=== PATIENT | female | born 1995 | race Caucasian/White ===

== ENCOUNTER 2016-07-09 17:55 | Emergency (ER) | payer BC ==
--- NOTE | 2016-07-09 18:04 | ER Document Report ---
ED Medical Screen (RME) - General Stated Complaint: ABDOMINAL PAIN Notes: light headed with dizzyness, chills b/l groin and testicle pain with hematuria for one day. no discharge h/o kidney stones I have greeted and performed a rapid initial assessment of this patient. A comprehensive ED assessment and evaluation of the patient, analysis of test results and completion of the medical decision making process will be conducted by additional ED providers.
[2016-07-09 18:45] LABS: ABSOLUTE LYMPHOCYTES (AUTO) 1.3 10^3/uL (0.5-4.7); ABSOLUTE MONOCYTES (AUTO) 0.4 10^3/uL (0.1-1.4); ABSOLUTE NEUT (AUTO) 4.8 10^3/uL (1.7-8.2); BASOPHILS % (AUTO) 0.5 % (0-2); EOSINOPHILS % (AUTO) 0.7 % (0-6); HEMATOCRIT 40.9 % (36.0-47.0); HGB HCT DIFFERENCE 1.1; LYMPHOCYTES % (AUTO) 19.3 % (13-45); MEAN CORPUSCULAR HEMOGLOBIN 29.4 pg (27.0-33.4); MEAN CORPUSCULAR HGB CONC 34.4 g/dL (32.0-36.0); MEAN CORPUSCULAR VOLUME 86 fl (80-97); MONOCYTES % (AUTO) 5.5 % (3-13); RED BLOOD COUNT 4.78 10^6/uL (3.72-5.28); WHITE BLOOD COUNT 6.5 10^3/uL (4.0-10.5)
[2016-07-09 18:46] LABS: APPEARANCE,URINE CLEAR; BILIRUBIN,URINE NEGATIVE (NEGATIVE); GLUCOSE, URINE NEGATIVE (NEGATIVE); KETONES,URINE NEGATIVE (NEGATIVE); LEUKOCYTE ESTERASE,URINE NEGATIVE (NEGATIVE); NITRITE,URINE NEGATIVE (NEGATIVE); PROTEIN,URINE NEGATIVE (NEGATIVE); URINE SPECIFIC GRAVITY 1.011; UROBILINOGEN,URINE NEGATIVE mg/dL (<2.0)
[2016-07-09 19:10] LABS: ALANINE AMINOTRANSFERASE 22 U/L (9-52); ALBUMIN 4.5 g/dL (3.5-5.0); ALKALINE PHOSPHATASE 49 U/L (38-126); ANION GAP 11 (5-19); ASPARTATE AMINO TRANSFERASE 17 U/L (14-36); BILIRUBIN,TOTAL 0.4 mg/dL (0.2-1.3); BLOOD UREA NITROGEN 5 mg/dL (7-20); CALCIUM 9.4 mg/dL (8.4-10.2); CARBON DIOXIDE 26 mmol/L (22-30); CHLORIDE 101 mmol/L (98-107); CREATININE RESULT 0.57 mg/dL (0.52-1.25); GLUCOSE 75 mg/dL (75-110); LIPASE 63.3 U/L (23-300); SODIUM 137.8 mmol/L (137-145); TOTAL PROTEIN 7.2 g/dL (6.3-8.2)
--- NOTE | 2016-07-09 22:53 | ER Document Report ---
ED General - General Chief Complaint: Abdominal Pain Stated Complaint: ABDOMINAL PAIN Notes: Patient is 20-year-old female who is 14 weeks . She presents because of some lower abdominal pain. No abnormal vaginal discharge or bleeding. No fevers. No vomiting. No recent infections. She had a ultrasound at 9 weeks which was normal. This is her first . She does not smoke drink or do drugs. She is taking vitamins. TRAVEL OUTSIDE OF THE [place] IN LAST 30 DAYS: No - Related Data Allergies/Adverse Reactions: No Known Allergies Allergy (Verified 07/09/16 18:07) Past Medical History - Social History Smoking Status: Unknown if Ever Smoked Chew tobacco use (# tins/day): No Frequency of alcohol use: None Drug Abuse: None Family History: Reviewed & Not Pertinent Patient has suicidal ideation: No Patient has homicidal ideation: No Renal/ Medical History: Denies: Hx Peritoneal Dialysis Review of Systems - Review of Systems Notes: My Normal Review Basic REVIEW OF SYSTEMS: CONSTITUTIONAL : Denies fever, chills, or sweats. Denies recent illness. EENT: Denies eye, ear, throat, or mouth pain or symptoms. Denies nasal or sinus congestion. RESPIRATORY: Denies cough, cold, or chest congestion. Denies shortness of breath, difficulty breathing, or wheezing. GASTROINTESTINAL: Left lower abdominal pain. Denies nausea, vomiting, or diarrhea. Denies constipation. Last BM: GENITOURINARY: Denies difficulty urinating, painful urination, burning, frequency, or blood in urine. FEMALE GENITOURINARY: Denies vaginal bleeding, abnormal or irregular periods. LMP: Currently MUSCULOSKELETAL: Denies neck or back pain or joint pain or swelling. SKIN: Denies rash or skin lesions. ALL OTHER SYSTEMS REVIEWED AND NEGATIVE. Physical Exam - Vital signs Vitals: Temp Pulse Resp BP Pulse Ox 98.3 F 60 18 137/76 H 99 07/09/16 18:06 07/09/16 18:06 07/09/16 18:06 07/09/16 18:06 07/09/16 18:06 - Notes Notes: General Appearance: Well nourished, alert, cooperative, no acute distress, no obvious discomfort. Well-appearing. Vitals: reviewed, See vital signs table. Eyes: PERRL, EOMI, Conjuctiva clear Mouth: No decreasd moisture Lungs: No wheezing, No rales, No rhonci, No accessory muscle use, good air exchange bilaterally. Heart: Normal rate, Regular rythm, No murmur, no rub Abdomen: Normal BS, soft, No rigidity, mild left lower quadrant abdominal tenderness to palpation, No guarding, no rebound, no abdominal masses, no organomegaly Pelvic: Normal external genitalia. Some white discharge in vaginal vault. No blood. Extremities: strength 5/5 in all extremities, good pulses in all extremities, no swelling or tenderness in the extremities, no edema. Skin: warm, dry, appropriate color, no rash Neuro: speech clear, oriented x 3, normal affect, responds appropriately to questions. Course - Vital Signs Vital signs: Temp Pulse Resp BP Pulse Ox 98.5 F 58 L 14 122/72 99 07/10/16 00:44 07/10/16 00:44 07/10/16 00:44 07/10/16 00:44 07/10/16 00:44 - Laboratory Result Diagrams: 07/09/16 18:30 07/09/16 18:30 Laboratory results interpreted by me: 07/09/16 07/09/16 18:30 18:30 BUN 5 L Beta HCG, Quant 43777.00 H - Transfer of Care Notes: 07/10/16 06:03 All shows obtained patient is does have some abdominal pain. Ultrasound was negative for any complications with . Wet prep did show bacterial vaginosis. I will place her on Flagyl. Patient will be discharged home this encourage follow closely with her valve maker. She's encouraged return to ER if she has any vaginal bleeding, fevers, or feels unwell. Dictation of this chart was performed using voice recognition software; therefore, there may be some unintended grammatical errors. Discharge - Discharge Clinical Impression: Bacterial vaginosis Qualifiers: Weeks of gestation: 14 weeks Qualified Code(s): Z3A.14 - 14 weeks gestation of Abdominal pain Qualifiers: Abdominal location: left lower quadrant Qualified Code(s): R10.32 - Left lower quadrant pain Condition: Good Disposition: HOME, SELF-CARE Additional Instructions: Please follow up closely with your OB physician. Please return to ER immediately if you have worsening pain, fevers, or any vaginal bleeding. Prescriptions: Metronidazole [Flagyl 500 mg Tablet] 500 mg PO BID #14 tablet
[2016-07-10] MEDS ORDERED: METRONIDAZOLE 500 MG TABLET PO ONE (00:03)
[2016-07-10 00:27] LABS: CHLAM PCR NOT DETECTED (NOT DETECT)
[2016-07-10 00:47] VITALS: BP 122/72
== END 2016-07-10 00:47 | disposition home or self-care (01) ==
LOC: ER 17:55
DX: O23.592 Infection of other part of genital tract in pregnancy, second trimester (principal); N76.0 Acute vaginitis; B96.89 Other specified bacterial agents as the cause of diseases classified elsewhere; O26.891 Other specified pregnancy related conditions, first trimester; R10.32 Left lower quadrant pain; Z3A.14 14 weeks gestation of pregnancy
CPT/HCPCS: 36415; 76801; 80053; 81001; 83690; 84702; 85025; 87086; 87210; 87491; 87591; 99284

== ENCOUNTER 2016-10-20 15:47 | Outpatient (CLI) | payer BC | END 2016-10-20 17:30 | disposition home or self-care (01) | LOC: LC 15:47 | PROVIDERS: ATTEND Specialist | PROC: 4A1HXCZ Monitoring of Products of Conception, Cardiac Rate, External Approach (ICD-10-PCS; principal; 2016-10-20) | DX: Z34.93 Encounter for supervision of normal pregnancy, unspecified, third trimester (principal); Z36 Encounter for antenatal screening of mother; Z3A.28 28 weeks gestation of pregnancy ==

== ENCOUNTER 2016-12-16 15:15 | Inpatient (IN) | payer BC, OTHER ==
[2016-12-16] MEDS ORDERED: PENICILLIN G POTASSIUM 5,000,000 UNIT in DEXTROSE 5%-WATER 100 ML IV ONE (15:50)
[2016-12-16] MEDS ORDERED: RINGERS SOLUTION,LACTATED 1,000 ML IV PRN (15:50)
[2016-12-16 15:58] LABS: APPEARANCE,URINE CLEAR; BILIRUBIN,URINE NEGATIVE (NEGATIVE); GLUCOSE, URINE NEGATIVE (NEGATIVE); KETONES,URINE NEGATIVE (NEGATIVE); LEUKOCYTE ESTERASE,URINE MODERATE (NEGATIVE); NITRITE,URINE NEGATIVE (NEGATIVE); PROTEIN,URINE NEGATIVE (NEGATIVE); URINE SPECIFIC GRAVITY 1.005; UROBILINOGEN,URINE NEGATIVE mg/dL (<2.0)
[2016-12-16] MEDS ORDERED: PENICILLIN G-K 5 MILLION UNIT VIAL ONE ×2 (15:58→19:36)
[2016-12-16] MEDS ORDERED: OXYTOCIN/NORMAL SALINE 0 UNIT/0 ML RTUINJ ONE (16:08)
[2016-12-16] MEDS ORDERED: MISOPROSTOL 0.2 MG TABLET ONE ×2 (16:08→16:19)
[2016-12-16] MEDS ORDERED: LIDOCAINE 1% INJ-PF (10 MG/ML) 30 ML SDV ONE ×3 (16:08→20:22)
[2016-12-16 16:12] LABS: URINE BARBITURATES SCREEN NEGATIVE; URINE METHADONE SCREEN NEGATIVE; URINE OPIATES LOW NEGATIVE; URINE PHENCYCLIDINE SCREEN NEGATIVE
[2016-12-16 16:17] LABS: ABSOLUTE LYMPHOCYTES (AUTO) 1.1 10^3/uL (0.5-4.7); ABSOLUTE MONOCYTES (AUTO) 0.8 10^3/uL (0.1-1.4); ABSOLUTE NEUT (AUTO) 8.5 10^3/uL (1.7-8.2); BASOPHILS % (AUTO) 0.2 % (0-2); EOSINOPHILS % (AUTO) 0.1 % (0-6); HEMATOCRIT 31.9 % (36.0-47.0); HEMOGLOBIN 10.7 g/dL (12.0-15.5); HGB HCT DIFFERENCE 0.2; LYMPHOCYTES % (AUTO) 10.2 % (13-45); MEAN CORPUSCULAR HEMOGLOBIN 26.3 pg (27.0-33.4); MEAN CORPUSCULAR HGB CONC 33.6 g/dL (32.0-36.0); MEAN CORPUSCULAR VOLUME 78 fl (80-97); RED BLOOD COUNT 4.07 10^6/uL (3.72-5.28); RED CELL DISTRIBUTION WIDTH 13.2 % (11.5-14.0); SEGMENTED NEUTROPHILS % (AUTO) 81.5 % (42-78); WHITE BLOOD COUNT 10.4 10^3/uL (4.0-10.5)
[2016-12-16] MEDS ORDERED: OXYTOCIN/NORMAL SALINE 20 UNIT/1,000 ML RTUINJ ONE (16:19)
--- NOTE | 2016-12-16 17:46 | L&D Progress Notes ---
PROGRESS NOTES Datetime Report Generated by CPN: 12/16/2016 17:46 PROGRESS NOTE Impression: Normal Progression of Labor; Reassuring Heart Rate Procedures: Sterile Vag Exam Plan: Continue Present Management Informed Consent Obtained: Vaginal Delivery; Risks, Benefits and Alternatives Discussed Vital Signs : Reviewed; Within Normal Limits Comment: admitted for active labor. Pt reports constant pressure. Cvx with change noted. Next dose of PCN due approx 1999. No bag noted on exam. Anticpate . Continue with management. VAGINAL EXAM Dilatation: 8 Effacement: 100 Station: 1 Contractions: q 2-3 FETUS A FHR - Baseline: 135 Monitoring: External US Variability: Moderate 6-25bpm Accelerations: 15X15 Decelerations: None Presentation: Vertex SIGNATURE SIGNATURE: [id number] Signature: with User ID: [email or web address]
--- NOTE | 2016-12-16 19:52 | L&D Progress Notes ---
PROGRESS NOTES Datetime Report Generated by CPN: 12/16/2016 19:52 PROGRESS NOTE Impression: Normal Progression of Labor Procedures: Artificial ROM; Sterile Vag Exam Plan: Continue Present Management Informed Consent Obtained: Vaginal Delivery; Risks, Benefits and Alternatives Discussed Vital Signs : Reviewed Comment: admitted for labor. PCN 2nd dose given. Doing well. AROM with clear fluid done. cvx change noted. Anticipate . VAGINAL EXAM Dilatation: 9 Effacement: 100 Station: 1 Contractions: q2 MEMBRANES Membranes: Ruptured Amniotic Fluid Color: Clear FETUS A FHR - Baseline: 135 Monitoring: External US Variability: Moderate 6-25bpm Accelerations: 15X15 FHR Category: Category I FETUS C SIGNATURE: [id number] Signature: with User ID: [email or web address]
[2016-12-16] MEDS ORDERED: PENICILLIN G POTASSIUM 2,500,000 UNIT in DEXTROSE 5%-WATER 50 ML IV SCH (20:00)
[2016-12-16] MEDS ORDERED: AMPICILLIN SOD/SULBACTAM 3 GM VIAL ONE (20:32)
[2016-12-16] MEDS ORDERED: PROMETHAZINE HCL 25 MG TABLET PO PRN (21:01)
[2016-12-16] MEDS ORDERED: PSEUDOEPHEDRINE HCL 30 MG TABLET PO PRN (21:01)
[2016-12-16] MEDS ORDERED: ACETAMINOPHEN WITH CODEINE #3 TABLET PO PRN (21:01)
[2016-12-16] MEDS ORDERED: BENZOCAINE/MENTHOL AEROSOL SPRAY 56 ML TOP PRN (21:01)
[2016-12-16] MEDS ORDERED: NA PHOS,M-B/NA PHOS,DI-BA (ADULT) 133 ML ENEMA PR PRN (21:01)
[2016-12-16] MEDS ORDERED: PROMETHAZINE HCL INJ 25 MG/1 ML VIAL IV PRN (21:01)
[2016-12-16] MEDS ORDERED: DIPH/PERTUSS(ACELL)/TETANUS VAC/PF 0.5 ML SYR (>=10YO) IM PRN (21:01)
[2016-12-16] MEDS ORDERED: DIPHENHYDRAMINE HCL 25 MG CAPSULE PO PRN (21:01)
[2016-12-16] MEDS ORDERED: GLYCERIN/WITCH HAZEL LEAF 1 EACH MED..PAD TP PRN (21:01)
[2016-12-16] MEDS ORDERED: DIBUCAINE 1% OINTMENT 28 GM TP PRN (21:01)
[2016-12-16] MEDS ORDERED: MEASLES,MUMPS&RUBELLA VACC/PF 0.5 ML VIAL SUBCUT PRN (21:01)
[2016-12-16] MEDS ORDERED: MAGNESIUM HYDROXIDE SUSP 30 ML UDCUP PO PRN (21:01)
[2016-12-16] MEDS ORDERED: ACETAMINOPHEN 650 MG SUPP.RECT PR PRN (21:01)
[2016-12-16] MEDS ORDERED: OXYTOCIN/NORMAL SALINE 20 UNIT/1,000 ML RTUINJ IV PRN (21:01)
[2016-12-16] MEDS ORDERED: ZOLPIDEM TARTRATE 5 MG TABLET PO PRN (21:01)
[2016-12-16] MEDS ORDERED: PROMETHAZINE HCL 25 MG SUPP.RECT PR PRN (21:01)
[2016-12-16] MEDS ORDERED: IBUPROFEN 800 MG TABLET ONE (21:31)
[2016-12-16] MEDS ORDERED: IBUPROFEN 800 MG TABLET PO SCH (22:00)
--- NOTE | 2016-12-16 23:37 | Admission Physical ---
Datetime Report Generated by N: 12/16/2016 23:37 CURRENT ADMISSION Chief Complaint: Uterine Contractions Indication for Induction: Not Applicable Admit Plan: Admit to Unit; Initiate Labor Protocol ALLERGIES Medication Allergies: No Medication Allergies: No Known Allergies (12/16/2016) Medication Allergies: No Known Allergies (07/09/2016) Latex: No Latex Allergies Food Allergies: None Environmental Allergies: None (Annotations: Data stored by [facility] on behalf of user) OBSTETRICAL HISTORY EDC: 01/14/2017 00:00 : 1 Para: 0 Term: 0 : 0 SAB: 0 IAB: 0 Ectopic: 0 Livin Cesareans: 0 VBACs: 0 Multiple Births: 0 Gestational Diabetes: No Rh Sensitization: No Incompetent Cervix: No ESTEFANIA: No Infertility: No ART Treatment: No Uterine Anomaly: No IUGR: No Hx Previous C/S: No Macrosomia: No Hx Loss/Stillborn: No PIH: No Hx : No Placenta Previa/Abruption: No Depression/PP Depression: No PTL/PROM: No Post Hemorrhage: No Current Procedures: Ultrasound; NST Obstetrical History Comments: G1 - current SEE RECORDS Alcohol: No Marijuana : No Cocaine: No Other Illicit Drugs: No Cigarettes: Never Smoker. [id number] MEDICAL HISTORY Diabetes: No Blood Transfusion: No Pulmonary Disease (Asthma, TB): No Breast Disease: No Hypertension: No District Captain Surgery: No Heart Disease: No Hosp/Surgery: No Autoimmune Disorder: No Anesthetic Complications: No Kidney Disease: No Abnormal Pap Smear: No Neuro/Epilepsy: Yes Psychiatric Disorders: No Other Medical Diseases: No Hepatitis/Liver Disease: No Significant Family History: No Varicosities/Phlebitis: No Trauma/Violence : No Thyroid Dysfunction: No Medical History Comments: Hx of migraines, T_A as child, eardrum cartiledge repair, breast reduction 2014 INFECTIOUS HISTORY Gonorrhea: No Genital Herpes: No Chlamydia: No Tuberculosis: No Syphilis: No Hepatitis: No HIV/AIDS Exposure: No Rash or Viral Illness: No HPV: No PHYSICAL EXAM General: Normal HEENT: Normal Neurologic: Normal Thyroid: Normal Heart: Normal Lungs: Normal Breast: Deferred Back: Normal Abdomen: Normal Genitourinary Exam: Normal Extremities: Normal DTRs: Normal Pelvic Type: Adequate Vital Signs: Reviewed; Within Normal Limits VAGINAL EXAM Dilatation: 9 Dilatation: 8 Effacement: 100 Effacement: 100 Station: 1 Station: 1 Contraction Comments: q2 Contraction Comments: q 2-3 MEMBRANES Membranes: Ruptured Amniotic Fluid Color: Clear FETUS A EGA: 35.6 Monitoring: External US FHR- Baseline: 135 Variability: Moderate 6-25bpm Accelerations: 15X15 Decelerations: None FHR Category: Category I Presentation: Vertex Admit Comment: 21yo at 35+6ega presents with regular uterine ctx q 2-3 minutes. Cvx 5/90/0 and no bag palpable. GBS unknown. Will give PCN for GBS prophy. c/b Abnl AFP - spine sono was normal and also complicated by Marginal cord insertion, Syncopal episdoes - Cardio referral. Anticpate . Pelvis adequate for TOMMIE. EFW 6#. Pt declines epidural. She desires pudendal block if possible. PLANS FOR LABOR AND DELIVERY Labor and Delivery: None Pain Management: Natural Feeding Preference: Breast Benefit of Breast Feed Discussed: Yes Circumcision: Yes INFORMED CONSENT Informed Consent Obtained: Vaginal Delivery; Risks, Benefits and Alternatives Discussed Informed Consent Obtained: Vaginal Delivery; Risks, Benefits and Alternatives Discussed Signature: with User ID: [email or web address]
[2016-12-16] MEDS: FAMOTIDINE 20 MG TABLET PO SCH (23:54)
[2016-12-17] MEDS ORDERED: AMPICILLIN SODIUM/SULBACTAM NA 3 GM in NORMAL SALINE 100 ML IV ONE (02:30)
[2016-12-17] MEDS: AMPICILLIN SODIUM/SULBACTAM NA 3 GM in NORMAL SALINE 100 ML IV SCH ×4 (02:51→21:06)
[2016-12-17] MEDS ORDERED: AMPICILLIN SOD/SULBACTAM 3 GM VIAL IV PRN (03:00)
[2016-12-17] MEDS ORDERED: IBUPROFEN 800 MG TABLET PO SCH (06:00)
[2016-12-17] MEDS ORDERED: IBUPROFEN 800 MG TABLET PO ONE (06:15)
[2016-12-17 06:43] LABS: HEMATOCRIT 30.2 % (36.0-47.0); HGB HCT DIFFERENCE -0.2; MEAN CORPUSCULAR HEMOGLOBIN 26.1 pg (27.0-33.4); MEAN CORPUSCULAR HGB CONC 33.1 g/dL (32.0-36.0); MEAN CORPUSCULAR VOLUME 79 fl (80-97); RED BLOOD COUNT 3.83 10^6/uL (3.72-5.28); WHITE BLOOD COUNT 10.9 10^3/uL (4.0-10.5)
[2016-12-17] MEDS: DOCUSATE SODIUM 100 MG CAPSULE PO SCH ×2 (10:10→18:15)
[2016-12-17] MEDS: FERROUS SULFATE 325 MG TABLET PO SCH ×2 (10:10→18:16)
[2016-12-17] MEDS: FAMOTIDINE 20 MG TABLET PO SCH ×2 (10:11→21:07)
[2016-12-17] MEDS: SENNOSIDES/DOCUSATE 8.6-50 MG 1 EACH TABLET PO SCH (10:11)
[2016-12-17] MEDS: PRENATAL VITAMIN W-O CA NO5/FE FUMARATE/FA CAPSULE PO SCH (10:12)
--- NOTE | 2016-12-17 10:21 | PDOC PROGRESS REPORT ---
Subjective-OB Subjective: Post Delivery Day: 21 year old. Denies any needs at this time Sitting up in bed, hsb at BS, pumping breasts, baby in NICU, baby still on Oxygen, eating well, voiding, ambulating Physical Exam (OB) Vital Signs: Temp Pulse Resp BP Pulse Ox 97.5 F 58 L 16 120/79 100 12/17/16 09:49 12/17/16 09:49 12/17/16 09:49 12/17/16 09:49 12/17/16 09:49 Intake & Output 12/16/16 12/17/16 12/18/16 06:59 06:59 06:59 Weight 59.75 kg - Lochia Lochia Amount: Small 10-25 ml Lochia Color: Rubra/Red - Abdomen Description: Soft, Round Hernia Present: No Fundal Description: Firm, Midline Fundal Height: u/u - u/2 Objective-Diagnostic Laboratory: 12/17/16 06:30 12/16/16 12/16/16 12/16/16 15:36 16:05 16:05 WBC 10.4 RBC 4.07 Hgb 10.7 L Hct 31.9 L MCV 78 L MCH 26.3 L MCHC 33.6 RDW 13.2 Plt Count 159 Seg Neutrophils % 81.5 H Lymphocytes % 10.2 L Monocytes % 8.0 Eosinophils % 0.1 Basophils % 0.2 Absolute Neutrophils 8.5 H Absolute Lymphocytes 1.1 Absolute Monocytes 0.8 Absolute Eosinophils 0.0 Absolute Basophils 0.0 Urine Color STRAW Urine Appearance CLEAR Urine pH 7.0 Ur Specific [place] 1.005 Urine Protein NEGATIVE Urine Glucose (UA) NEGATIVE Urine Ketones NEGATIVE Urine Blood NEGATIVE Urine Nitrite NEGATIVE Ur Leukocyte Esterase MODERATE H Ur Squamous Epith Cells FEW Blood Type A POSITIVE Antibody Screen NEGATIVE 12/17/16 06:30 WBC 10.9 H RBC 3.83 Hgb 10.0 L Hct 30.2 L MCV 79 L MCH 26.1 L MCHC 33.1 RDW 13.0 Plt Count 161 Seg Neutrophils % Lymphocytes % Monocytes % Eosinophils % Basophils % Absolute Neutrophils Absolute Lymphocytes Absolute Monocytes Absolute Eosinophils Absolute Basophils Urine Color Urine Appearance Urine pH Ur Specific [place] Urine Protein Urine Glucose (UA) Urine Ketones Urine Blood Urine Nitrite Ur Leukocyte Esterase Ur Squamous Epith Cells Blood Type Antibody Screen Assessment and Plan(PN) - Assessment and Plan (1) Chorioamnionitis in third trimester Qualifiers: Fetus number: single or unspecified fetus Qualified Code(s): O41.1230 - Chorioamnionitis, third trimester, not applicable or unspecified Is this a current diagnosis for this admission?: Yes (2) Syncopal episodes Qualifiers: Syncope type: unspecified Qualified Code(s): R55 - Syncope and collapse Is this a current diagnosis for this admission?: Yes (3) Migraines Qualifiers: Migraine type: unspecified Is this a current diagnosis for this admission?: Yes (4) delivery Is this a current diagnosis for this admission?: Yes (5) Anemia Qualifiers: Anemia type: iron deficiency Is this a current diagnosis for this admission?: Yes - Time Spent with Patient Time with patient: Less than 15 minutes Medications reviewed and adjusted accordingly: Yes - Disposition Anticipated Discharge: Home Within: within 48 hours
[2016-12-17] MEDS: IBUPROFEN 800 MG TABLET PO SCH ×2 (14:40→21:07)
[2016-12-17 22:54] LABS: CHLAM PCR NOT DETECTED (NOT DETECT)
[2016-12-18] MEDS: AMPICILLIN SODIUM/SULBACTAM NA 3 GM in NORMAL SALINE 100 ML IV SCH ×2 (03:13→09:58)
[2016-12-18] MEDS: ACETAMINOPHEN WITH CODEINE #3 TABLET PO PRN ×2 (04:07→09:28)
[2016-12-18] MEDS: IBUPROFEN 800 MG TABLET PO SCH ×3 (06:45→21:34)
[2016-12-18] MEDS: SENNOSIDES/DOCUSATE 8.6-50 MG 1 EACH TABLET PO SCH (09:27)
[2016-12-18] MEDS: DOCUSATE SODIUM 100 MG CAPSULE PO SCH ×2 (09:27→17:46)
[2016-12-18] MEDS: FAMOTIDINE 20 MG TABLET PO SCH ×2 (09:27→21:34)
[2016-12-18] MEDS: FERROUS SULFATE 325 MG TABLET PO SCH ×2 (09:28→17:46)
--- NOTE | 2016-12-18 09:55 | Delivery Summary ---
Del Sum A-C Datetime Report Generated by CPN: 12/18/2016 09:55 DELIVERY PERSONNEL DELIVERY PERSONNEL: [id number] DELIVERY PERSONNEL: [id number] DELIVERY PERSONNEL: [id number] Delivery Doctor:: Yamilet Long MD Labor and Delivery Nurse:: Nuha Ortiz RNconsumer studies professor Nurse:: Judith Martínez RN Nursery Nurse:: Katelynn Starks RN Nursery Nurse:: LISA Nation Tech/GENERAL MEDICAL PRACTITIONER: Carole Harvey, AUDIT CLERK MATERNAL INFORMATION Delivery Anesthesia: Pudendal Medications After Delivery: Pitocin Bolus-Please Comment; Pitocin Drip 20 Units/1000ml NSS Meds After Delivery Comment: NS with Pitocin 20 units/Liter IVF bolus per Estimated Blood Loss (ml): 250 Maternal Complications: None; Abnormal Cord Length Other Maternal Complications: suspected chorio Provider Comments: Pt noted to be c/c/+2 and Pudendal Block performed with 20ml of 1% lidocaine. VMI delivered in [place] presentation with no nuchal cord. Shoulders and body delivered w/o difficulty. Cord doubly clamped and cut and to maternal abdomen for NRP. Nursery present due to ega. Odor noted at delivery of - suspect chorio but no maternal fever/ tachy. Will treat with abx - unasyn. Placenta delivered intact spontaneously. Good hemostasis after repair of bilateral labial lacerations. FF at U. Apgars and weight pending. LABOR SUMMARY EDC: 01/14/2017 00:00 No. Babies in Womb: 1 Attempted: No Labor Anesthesia: None LABOR INFORMATION Reason for Induction: Not Applicable Onset of Labor: 12/16/2016 09:30 Complete Dilatation: 12/16/2016 19:44 Oxytocin: N/A Group B Beta Strep: unknown Antibiotics # of Doses: 2 Antibiotics Time of Last Dose: 1941 Name of Antibiotic Given: Penicillin Steroids Given: None Reason Steroids Not Administered: Not Applicable MEMBRANES Membranes Rupture Method: Artificial Rupture of Membranes: 12/16/2016 19:44 Length of Rupture (hr): 0.57 Amniotic Fluid Color: Bloody Amniotic Fluid Amount: Small Amniotic Fluid Odor: Normal STAGES OF LABOR Stage 1 hr: 10 Stage 1 min: 14 Stage 2 hr: 0 Stage 2 min: 34 Stage 3 hr: 0 Stage 3 min: 4 Total Time in Labor hr: 10 Total Time in Labor min: 52 VAGINAL DELIVERY Episiotomy: None Laceration Extension: First Degree Laceration Type: Vaginal Laceration Repair: Yes Laceration Repair Note: Bilateral labial lacerations repaired in the usual fashion. Sponge Count Correct: Yes Sharps Count Correct: Yes CSECTION DELIVERY Primary Indication: N/A Secondary Indication: N/A CSection Incidence: N/A Labor: N/A Elective: N/A CSection Incision: N/A BABY A INFORMATION Infant Delivery Date/Time: 12/16/2016 20:18 Method of Delivery: Vaginal Method of Delivery: Vaginal Born in Route : No : N/A Forceps: N/A Vacuum Extraction: N/A Shoulder Dystocia : No PRESENTATION/POSITION BABY A Presentation: Cephalic Presentation: Cephalic Cephalic Presentation: Vertex Vertex Position: Left Occipital Anterior Breech Presentation: N/A PLACENTA INFORMATION BABY A Placenta Delivery Time : 12/16/2016 20:22 Placenta Method of Delivery: Spontaneous Placenta Method of Delivery: Spontaneous Placenta Status: Delivered SCORES BABY A Heart Rate 1 min: >100 bpm Resp Effort 1 min: Slow, Irregular Reflex Irritability 1 min: Cough or Sneeze or Pulls Away Muscle Tone 1 min: Some Flexion of Extremities Color 1 min: Blue/Pale Resuscitation Effort 1 min: PPV/NCPAP SCORE 1 MIN: 6 Heart Rate 5 min: >100 bpm Resp Effort 5 min: Slow, Irregular Reflex Irritability 5 min: Cough or Sneeze or Pulls Away Muscle Tone 5 min: Active Motion Color 5 min: Blue/Pale Resuscitation Effort 5 min: PPV/NCPAP SCORE 5 MIN: 7 Heart Rate 10 min: >100 bpm Resp Effort 10 min: Good Cry Reflex Irritability 10 min: Cough or Sneeze or Pulls Away Muscle Tone 10 min: Active Motion Color 10 min: Body [place], Extremities Blue Resuscitation Effort 10 min: N/A SCORE 10 MIN: 9 INFANT INFORMATION BABY A Gestational Age at Delivery: 35.6 Gestational Status: Late - 34- 36.6 Weeks Outcome : Liveborn Infant Condition : Stable Sex: Male IDENTIFICATION BABY A Verification Date/Time: 12/16/2016 20:35 ID Band Number: [id number] Mother's Name Verified: Yes Infant RN Verifying Infant: rn margaret Additional Verifying Personnel: rn angus WEIGHT/LENGTH BABY A Birthweight (gm): 2643 Infant Weight (lb): 5 Infant Weight (oz): 13 Infant Length (in): 18.50 Length (cm): 46.99 CORD INFORMATION BABY A No. Cord Vessels: 3 Nuchal Cord : N/A Cord Blood Taken: Yes-For Storage ([facility] Blood type +) Infant Suction: Mouth; Nose ASSESSMENT BABY A Infant Complications: None; Other Complications- Other: Respirations: Grunting; Intercostal Retractions; Nasal Flaring Skin to Skin: No Skin to Skin: No Skin to Skin: No Skin to Skin: No Skin to Skin: No Skin to Skin: No Skin to Skin: No Skin to Skin: No Electoral Officer/ALS Called : No Infant Care By: Erasmo Starks RN Transferred To: NICU BABY B INFORMATION : N/A SIGNATURES Signature: with User ID: Troy Signature: with User ID: Troy : with User ID: Troy
[2016-12-18] MEDS: PRENATAL VITAMIN W-O CA NO5/FE FUMARATE/FA CAPSULE PO SCH (10:00)
--- NOTE | 2016-12-18 10:26 | PDOC PROGRESS REPORT ---
Subjective-OB Subjective: Post Delivery Day: 21 year old. Denies any needs at this time. Request to stay another day as much uterine pain and baby in NICU. Physical Exam (OB) Vital Signs: Temp Pulse Resp BP Pulse Ox 97.9 F 62 16 131/73 H 100 12/18/16 08:05 12/18/16 08:05 12/18/16 08:05 12/18/16 08:05 12/18/16 08:05 Intake & Output 12/17/16 12/18/16 12/19/16 06:59 06:59 06:59 Intake Total 830 Balance 830 Weight 59.75 kg - PIH/Pre-Eclampsia Clonus: Negative Headache: Absent Epigastric Pain: No Visual Changes: No - Lochia Lochia Amount: Scant < 10 ml Lochia Color: Rubra/Red - Abdomen Description: Soft, Round Hernia Present: No Bowel Sounds: Normoactive Flatus Presence: Present Stool: No Fundal Description: Firm, Midline Fundal Height: u/u - u/2 Objective-Diagnostic Laboratory: 12/17/16 06:30 Assessment and Plan(PN) - Time Spent with Patient Medications reviewed and adjusted accordingly: Yes - Disposition Anticipated Discharge: Home
[2016-12-19] MEDS: IBUPROFEN 800 MG TABLET PO SCH ×2 (05:31→13:01)
[2016-12-19] MEDS: SENNOSIDES/DOCUSATE 8.6-50 MG 1 EACH TABLET PO SCH (09:07)
[2016-12-19] MEDS: FAMOTIDINE 20 MG TABLET PO SCH (09:07)
[2016-12-19] MEDS: DOCUSATE SODIUM 100 MG CAPSULE PO SCH (09:07)
[2016-12-19] MEDS: FERROUS SULFATE 325 MG TABLET PO SCH (09:07)
[2016-12-19] MEDS: PRENATAL VITAMIN W-O CA NO5/FE FUMARATE/FA CAPSULE PO SCH (09:07)
--- NOTE | 2016-12-19 13:54 | PDOC DISCHARGE SUMMARY ---
Final Diagnosis Discharge Date: 12/19/16 - Final Diagnosis (1) Anemia Is this a current diagnosis for this admission?: Yes (2) Migraines Is this a current diagnosis for this admission?: Yes (3) delivery Is this a current diagnosis for this admission?: Yes Discharge Data - Discharge Medication Home Medications: Vit/Iron Fumarate/FA [ Tablet] 1 tab PO DAILY 10/20/16 Intrapartum Procedure(s): Spontaneous Vaginal Delivery - Diagnosis Test Laboratory: Temp Pulse Resp BP Pulse Ox 98.0 F 57 L 16 120/78 100 12/19/16 08:08 12/19/16 08:08 12/19/16 08:08 12/19/16 08:08 12/19/16 08:08 12/16/16 12/16/16 12/17/16 15:36 16:05 06:30 RBC 4.07 3.83 Hgb 10.7 L 10.0 L Hct 31.9 L 30.2 L Urine Opiates Screen NEGATIVE - Discharge information/Instructions Discharge Activity: Activity As Tolerated Discharge Diet: Regular Disposition: HOME, SELF-CARE Follow up with: [facility] in: 4
[2016-12-19 14:28] VITALS: BP 120/79
== END 2016-12-19 14:28 | disposition home or self-care (01) | DRG 775 ==
LOC: LC 15:15 → LR 15:54 → 2S 22:30
PROVIDERS: ADMIT Student in an Organized Health Care Education/Training Program; ATTEND Student in an Organized Health Care Education/Training Program
PROC: 10E0XZZ Delivery of Products of Conception, External Approach (ICD-10-PCS; principal; 2016-12-16)
PROC: 0HQ9XZZ Repair Perineum Skin, External Approach (ICD-10-PCS; 2016-12-16)
PROC: 4A1HXCZ Monitoring of Products of Conception, Cardiac Rate, External Approach (ICD-10-PCS; 2016-12-16)
PROC: 3E0234Z Introduction of Serum, Toxoid and Vaccine into Muscle, Percutaneous Approach (ICD-10-PCS; 2016-12-17)
DX: O41.1230 Chorioamnionitis, third trimester, not applicable or unspecified (principal); O60.14X0 Preterm labor third trimester with preterm delivery third trimester, not applicable or unspecified; O99.354 Diseases of the nervous system complicating childbirth; O70.0 First degree perineal laceration during delivery; G43.909 Migraine, unspecified, not intractable, without status migrainosus; O99.02 Anemia complicating childbirth; D50.9 Iron deficiency anemia, unspecified; Z3A.35 35 weeks gestation of pregnancy; Z37.0 Single live birth; Z23 Encounter for immunization
CPT/HCPCS: 36415; 80307; 81001; 85025; 85027; 86592; 86850; 86900; 86901; 87070; 87077; 87186; 87205; 87491; 87591; 88307; 90715; 99465; J0295; J2540; J2590; J3490